=== PATIENT | male | born 1945 | race Caucasian/White ===

== ENCOUNTER 2021-11-24 09:01 | Observation (INO) | payer OTHER ==
[2021-11-24] MEDS ORDERED: Sodium Chloride 0.9% 10 ML Syringe FLUSH PRN (09:21)
[2021-11-24 10:20] LABS: PTT,PARTIAL THROMBOPLSTIN TIME 25.6 SEC (22.0-34.0)
[2021-11-24 10:24] LABS: ANION GAP 11.9 mEq/L (7-13)
[2021-11-24] MEDS ORDERED: Apixaban 5 MG Tab PO ONE ×2 (11:06→13:15)
[2021-11-24] MEDS ORDERED: diphenhydrAMINE 50 MG/ML SDV IVPUSH ONE (11:09)
[2021-11-24] MEDS ORDERED: VANCOmycin 1.5 GM/300 ML 1.5 GM in Premix Bag 1 BAG IV ONE (11:45)
[2021-11-24 11:53] LABS: CORONAVIRUS COVID-19 NAA NEGATIVE (NEGATIVE); RESPIRATORY SYNCYTIAL VIR NAA NEGATIVE (NEGATIVE)
[2021-11-24] MEDS ORDERED: Bisacodyl 5 MG Tab PO PRN (13:25)
[2021-11-24] MEDS ORDERED: Ondansetron 4 MG/2 ML SDV IVPUSH PRN (13:25)
[2021-11-24] MEDS ORDERED: Acetaminophen 325 MG Tab PO PRN (13:25)
[2021-11-24] MEDS ORDERED: Polyethylene Glycol 3350 Powder 17 GM Packet PO PRN (13:25)
[2021-11-24] MEDS ORDERED: Docusate Sodium 100 MG Cap PO PRN (13:25)
[2021-11-24 13:47] LABS: HEMOGLOBIN A1C 8.1 % (<5.7)
[2021-11-24] MEDS: Enoxaparin 40 MG/0.4 ML Syringe SUBCUT SCH (16:10)
[2021-11-25 07:15] LABS: ANION GAP 13.1 mEq/L (7-13)
[2021-11-25] MEDS ORDERED: Furosemide 20 MG Tab PO SCH (09:00)
[2021-11-25] MEDS: Furosemide 20 MG Tab PO SCH (09:33)
[2021-11-25] MEDS: glipiZIDE 5 MG Tab.ER PO SCH (09:33)
[2021-11-25] MEDS: Enoxaparin 40 MG/0.4 ML Syringe SUBCUT SCH (09:34)
[2021-11-25] MEDS: Carboxymethylcellulose Sodium 1% Ophth Gel 0.4 ML UD EYEBOTH SCH ×2 (12:24→20:31)
[2021-11-25] MEDS ORDERED: Carboxymethylcellulose Sodium 1% Ophth Gel 0.4 ML UD EYEBOTH SCH (21:00)
[2021-11-26 08:14] VITALS: BP 137/74; PULSE 63
[2021-11-26] MEDS: Furosemide 20 MG Tab PO SCH (08:40)
[2021-11-26] MEDS: glipiZIDE 5 MG Tab.ER PO SCH (08:40)
[2021-11-26] MEDS: Enoxaparin 40 MG/0.4 ML Syringe SUBCUT SCH (08:41)
[2021-11-26] MEDS: Carboxymethylcellulose Sodium 1% Ophth Gel 0.4 ML UD EYEBOTH SCH (08:41)
[2021-11-26 10:45] LABS: ANION GAP 11.2 mEq/L (7-13)
== END 2021-11-26 11:12 | disposition home or self-care (01) ==
LOC: DL.ED 09:01 → DL.MS 12:41
PROVIDERS: ADMIT Internal Medicine; ATTEND Internal Medicine
DX: L03.116 Cellulitis of left lower limb (principal); J44.9 Chronic obstructive pulmonary disease, unspecified; K44.9 Diaphragmatic hernia without obstruction or gangrene; M19.90 Unspecified osteoarthritis, unspecified site; F17.200 Nicotine dependence, unspecified, uncomplicated; N18.30 Chronic kidney disease, stage 3 unspecified; Z20.822 Contact with and (suspected) exposure to COVID-19; Z98.890 Other specified postprocedural states; Z79.899 Other long term (current) drug therapy; Z79.1 Long term (current) use of non-steroidal anti-inflammatories (NSAID); Z79.84 Long term (current) use of oral hypoglycemic drugs
CPT/HCPCS: 0241U; 36415; 80048; 80053; 80202; 83036; 83605; 83880; 85025; 85610; 85730; 86140; 87040; 93971; 96365; 96366; 96375; 99284; A9270; G0378; J1200; J1650; J3370; J7050; 99217; 99219; 99225

== ENCOUNTER 2021-12-24 13:33 | Emergency (ER) | payer OTHER ==
[2021-12-24 14:24] VITALS: BP 151/102; PULSE 73
[2021-12-24 16:50] LABS: ANION GAP 14.9 mEq/L (7-13)
== END 2021-12-24 17:25 | disposition home or self-care (01) ==
LOC: DL.ED 13:33
DX: R60.0 Localized edema (principal); J44.9 Chronic obstructive pulmonary disease, unspecified; E11.9 Type 2 diabetes mellitus without complications; Z86.73 Personal history of transient ischemic attack (TIA), and cerebral infarction without residual deficits
CPT/HCPCS: 36415; 80053; 85025; 85379; 86140; 93005; 99283

== ENCOUNTER 2022-12-09 07:13 | Inpatient (IN) | payer MEDICARE, OTHER ==
[2022-12-09] MEDS ORDERED: Acetaminophen 325 MG Tab PO ONE (07:30)
[2022-12-09 07:34] LABS: HEMATOCRIT 44.1 % (40.0-54.0); HEMOGLOBIN 15.2 g/dL (14.0-18.0); MEAN CORPUSCULAR HGB CONC 34.5 g/dL (33.0-35.0); MEAN CORPUSCULAR VOLUME 95.9 fL (80-100); PLATELET COUNT,PLT 112 10^3/uL (150-450); WHITE BLOOD CELL COUNT,WBC 15.6 10^3/uL (5.0-10.0)
[2022-12-09 07:36] LABS: BASOPHILS PERCENT AUTO 0.1 % (0.0-1.0); LYMPHOCYTES PERCENT AUTO 5.6 % (20.5-50.1); NEUTROPHILS PERCENT AUTO 81.3 % (42.2-75.2)
[2022-12-09 07:58] LABS: A/G RATIO 0.73; ANION GAP 16.1 mEq/L (7-13); BILIRUBIN TOTAL 1.5 mg/dL (0.2-1.0); BUN/CREATININE RATIO 9.5 (No establ ref range); CALCIUM 9.1 mg/dL (8.5-10.1); CREATININE 2.84 mg/dL (0.70-1.30); EST CRCL DRUG DOSING (CG) 21.41 mL/min; POTASSIUM,K 4.1 mmol/L (3.5-5.1); PROTEIN TOTAL,TP 7.1 g/dL (6.4-8.2)
[2022-12-09 08:02] LABS: LACTIC ACID 2.6 mmol/L (0.4-2.0)
[2022-12-09] MEDS ORDERED: SODIUM CHLORIDE 0.9% IV STA (08:05)
[2022-12-09] MEDS: Sodium Chloride 0.9% 10 ML Syringe FLUSH PRN (08:06)
[2022-12-09 08:07] LABS: BAND PERCENT MAN 12 %; LYMPHOCYTES PERCENT MAN 7 % (20-50); MONOCYTES PERCENT MAN 9 % (2-8); SEG NEUTROPHILS PERCENT MAN 72 % (42-75)
[2022-12-09] MEDS ORDERED: cefTRIAXone 1 GM Vial IVPUSH ONE (08:14)
[2022-12-09] MEDS ORDERED: Sodium Chloride 0.9% 10 ML Syringe FLUSH PRN (08:45)
[2022-12-09 09:11] LABS: APPEARANCE,URINE CLEAR (CLEAR); BILIRUBIN,URINE NEGATIVE (NEGATIVE); COLOR,URINE YELLOW (YELLOW); GLUCOSE,URINE 500 (NEGATIVE); KETONES,URINE 15 (NEGATIVE); LEUKOCYTE ESTERASE,URINE NEGATIVE (NEGATIVE); NITRITE,URINE NEGATIVE (NEGATIVE); OCCULT BLOOD,URINE MODERATE (NEGATIVE); PH,URINE 5.5 (5.0-9.0); PROTEIN,URINE 100 (NEGATIVE); UROBILINOGEN,URINE 0.2 mg/dL (0.2-1.0)
[2022-12-09 09:21] LABS: BACTERIA,URINE RARE /HPF (0-FEW/HPF); EPITHELIAL CELLS,URINE RARE /HPF (NOT SEEN); RBC,URINE 0-5 /HPF (0-5); WBC,URINE 0-5 /HPF (0-5/HPF)
[2022-12-09 09:22] LABS: MUCUS,URINE NOT SEEN /LPF (NOT SEEN)
[2022-12-09] MEDS ORDERED: Ondansetron 4 MG/2 ML SDV IVPUSH PRN (11:48)
[2022-12-09] MEDS ORDERED: Sennosides/Docusate Sodium 50-8.6 MG Tab PO PRN (11:48)
[2022-12-09] MEDS ORDERED: HYDROmorphone 0.5 MG/0.5 ML Syringe IVPUSH PRN (11:48)
[2022-12-09] MEDS ORDERED: Acetaminophen 325 MG Tab PO PRN (11:48)
[2022-12-09] MEDS ORDERED: Magnesium Hydroxide 400 MG/5 ML Susp 30 ML Cup PO PRN (11:48)
[2022-12-09] MEDS ORDERED: Polyethylene Glycol 3350 Powder 17 GM Packet PO PRN (11:48)
[2022-12-09] MEDS ORDERED: hydrALAZINE 20 MG/ML SDV IVPUSH PRN (11:52)
[2022-12-09] MEDS ORDERED: 50% Dextrose in Water 50 ML Syringe IVPUSH PRN (11:52)
[2022-12-09] MEDS ORDERED: Glucagon,Human Recombinant 1 MG Vial IM PRN (11:52)
[2022-12-09] MEDS ORDERED: Metoprolol Tartrate 5 MG/5 ML SDV IVPUSH PRN (11:52)
[2022-12-09] MEDS ORDERED: cloNIDine 0.1 MG Tab PO PRN (11:56)
[2022-12-09] MEDS ORDERED: LORazepam 2 MG/ML SDV IV PRN (11:56)
[2022-12-09] MEDS ORDERED: LORazepam 0.5 MG Tab PO PRN (11:56)
[2022-12-09 12:17] LABS: T4 FREE 1.48 ng/dL (0.76-1.46); TSH ULTRASENSITIVE 1.22 uIU/mL (0.36-3.74)
[2022-12-09] MEDS ORDERED: MVI, Adult with Vitamin K 10 ML, Folic Acid 1 MG, Thiamine 100 MG in Lactated Ringers 1... IV ONE ×4 (12:30)
[2022-12-09] MEDS: Piperacillin/Tazobactam 3.375 GM in Sodium Chloride 0.9% 100 ML IV SCH ×2 (12:46→12:59)
[2022-12-09] MEDS: Acetaminophen/Butalbital/Caffeine 325-50-40 MG Tab PO PRN (12:47)
[2022-12-09] MEDS: Insulin Lispro 100 Units/ML 3 ML Vial SUBCUT SCH ×2 (12:53→17:58)
[2022-12-09] MEDS: Piperacillin/Tazobactam 2.25 GM in Sodium Chloride 0.9% 50 ML IV SCH ×3 (13:02→23:42)
[2022-12-09] MEDS: Acetaminophen 325 MG Tab PO PRN (17:23)
[2022-12-09] MEDS: Albuterol/Ipratropium 3.0-0.5 MG/3 ML Neb Soln NEB PRN (17:36)
[2022-12-09] MEDS: Loratadine 10 MG Tab PO SCH (21:00)
[2022-12-09] MEDS: Saccharomyces Boulardii (Probiotic) 250 MG Cap PO SCH (21:00)
[2022-12-10] MEDS: Acetaminophen/Butalbital/Caffeine 325-50-40 MG Tab PO PRN (04:56)
[2022-12-10] MEDS: Pantoprazole 40 MG Tab.CR PO SCH ×2 (04:58→06:00)
[2022-12-10] MEDS: Piperacillin/Tazobactam 2.25 GM in Sodium Chloride 0.9% 50 ML IV SCH ×3 (04:58→18:07)
[2022-12-10 06:09] LABS: BASOPHILS PERCENT AUTO 0.1 % (0.0-1.0); HEMATOCRIT 39.1 % (40.0-54.0); HEMOGLOBIN 13.3 g/dL (14.0-18.0); LYMPHOCYTES PERCENT AUTO 6.3 % (20.5-50.1); MEAN CORPUSCULAR HEMOGLOBIN 32.8 pg (27.0-34.0); MEAN CORPUSCULAR VOLUME 96.3 fL (80-100); MONOCYTES PERCENT AUTO 12.8 % (2-8); NEUTROPHILS PERCENT AUTO 80.8 % (42.2-75.2); PLATELET COUNT,PLT 75 10^3/uL (150-450); RED BLOOD CELL COUNT 4.06 10^6/uL (4.6-6.2); WHITE BLOOD CELL COUNT,WBC 8.3 10^3/uL (5.0-10.0)
[2022-12-10 06:44] LABS: ALBUMIN 2.2 g/dL (3.4-5.0); ANION GAP 16.6 mEq/L (7-13); BILIRUBIN TOTAL 1.1 mg/dL (0.2-1.0); CREATININE 3.09 mg/dL (0.70-1.30); EST CRCL DRUG DOSING (CG) 19.68 mL/min; MAGNESIUM 1.8 mg/dL (1.8-2.4); POTASSIUM,K 3.6 mmol/L (3.5-5.1)
[2022-12-10 06:53] LABS: A/G RATIO 0.58; C-REACTIVE PROTEIN 35.5 mg/dL (0.0-0.9)
[2022-12-10] MEDS: Insulin Lispro 100 Units/ML 3 ML Vial SUBCUT SCH ×3 (08:16→17:13)
[2022-12-10] MEDS: Saccharomyces Boulardii (Probiotic) 250 MG Cap PO SCH ×2 (08:39→21:39)
[2022-12-10] MEDS: Thiamine 100 MG Tab PO SCH (08:39)
[2022-12-10] MEDS: Folic Acid 1 MG Tab PO SCH (08:39)
[2022-12-10] MEDS: Multivitamin Tab PO SCH (08:39)
[2022-12-10] MEDS: Loratadine 10 MG Tab PO SCH ×2 (08:39→21:40)
[2022-12-10] MEDS ORDERED: Sodium Chloride 0.9% 1,500 ML IV SCH (09:45)
[2022-12-10] MEDS: Acetaminophen 325 MG Tab PO PRN (12:21)
[2022-12-10] MEDS: Acetaminophen/oxyCODONE 325-5 MG Tab PO PRN ×2 (12:23→19:11)
[2022-12-10 17:13] LABS: APPEARANCE,URINE CLOUDY (CLEAR); BILIRUBIN,URINE NEGATIVE (NEGATIVE); COLOR,URINE YELLOW (YELLOW); GLUCOSE,URINE 500 (NEGATIVE); KETONES,URINE NEGATIVE (NEGATIVE); LEUKOCYTE ESTERASE,URINE SMALL (NEGATIVE); NITRITE,URINE NEGATIVE (NEGATIVE); OCCULT BLOOD,URINE LARGE (NEGATIVE); PROTEIN,URINE >=300 (NEGATIVE)
[2022-12-10 17:45] LABS: EPITHELIAL CELLS,URINE FEW /HPF (NOT SEEN); WBC,URINE >100 /HPF (0-5/HPF)
[2022-12-10 17:46] LABS: AMORPHOUS SEDIMENT,URINE FEW /HPF (NOT SEEN)
[2022-12-10 17:47] LABS: BACTERIA,URINE MODERATE /HPF (0-FEW/HPF); RBC,URINE 50-75 /HPF (0-5)
[2022-12-10] MEDS ORDERED: Meropenem 1 GM SDV IVPUSH SCH ×3 (18:30→22:00)
[2022-12-10 19:13] LABS: ANION GAP 14.9 mEq/L (7-13); CREATININE 3.07 mg/dL (0.70-1.30); EST CRCL DRUG DOSING (CG) 19.8 mL/min; MAGNESIUM 1.8 mg/dL (1.8-2.4); POTASSIUM,K 3.9 mmol/L (3.5-5.1)
[2022-12-10] MEDS: Sodium Chloride 0.9% 10 ML Syringe FLUSH PRN (21:41)
[2022-12-10] MEDS ORDERED: MVI, Adult with Vitamin K 10 ML, Folic Acid 1 MG, Thiamine 100 MG in Lactated Ringers 1... IV ONE ×4 (23:46)
[2022-12-11] MEDS: Piperacillin/Tazobactam 2.25 GM in Sodium Chloride 0.9% 50 ML IV SCH ×4 (02:16→17:53)
[2022-12-11] MEDS ORDERED: MVI, Adult with Vitamin K 10 ML, Folic Acid 1 MG, Thiamine 100 MG in Lactated Ringers 1... IV ONE ×4 (05:00)
[2022-12-11] MEDS: Acetaminophen 325 MG Tab PO PRN (05:59)
[2022-12-11] MEDS: Pantoprazole 40 MG Tab.CR PO SCH (06:00)
[2022-12-11 06:05] LABS: BASOPHILS PERCENT AUTO 0.2 % (0.0-1.0); EOSINOPHILS PERCENT AUTO 0.3 % (1.0-3.0); HEMATOCRIT 40.3 % (40.0-54.0); HEMOGLOBIN 13.7 g/dL (14.0-18.0); LYMPHOCYTES PERCENT AUTO 10.7 % (20.5-50.1); MEAN CORPUSCULAR HEMOGLOBIN 32.5 pg (27.0-34.0); MEAN CORPUSCULAR VOLUME 95.7 fL (80-100); NEUTROPHILS PERCENT AUTO 74.8 % (42.2-75.2); PLATELET COUNT,PLT 76 10^3/uL (150-450); RED BLOOD CELL COUNT 4.21 10^6/uL (4.6-6.2); WHITE BLOOD CELL COUNT,WBC 6.4 10^3/uL (5.0-10.0)
[2022-12-11 06:20] LABS: ALBUMIN 2.2 g/dL (3.4-5.0); BILIRUBIN TOTAL 1.2 mg/dL (0.2-1.0); BUN/CREATININE RATIO 10.7 (No establ ref range); CREATININE 3.08 mg/dL (0.70-1.30); EST CRCL DRUG DOSING (CG) 19.74 mL/min; PROTEIN TOTAL,TP 6.3 g/dL (6.4-8.2)
[2022-12-11 06:27] LABS: A/G RATIO 0.54
[2022-12-11 06:28] LABS: C-REACTIVE PROTEIN 33.2 mg/dL (0.0-0.9)
[2022-12-11] MEDS: Insulin Lispro 100 Units/ML 3 ML Vial SUBCUT SCH ×3 (08:51→17:14)
[2022-12-11] MEDS: Meropenem 1 GM SDV IVPUSH SCH ×2 (08:51→22:07)
[2022-12-11] MEDS: Multivitamin Tab PO SCH (08:51)
[2022-12-11] MEDS: Saccharomyces Boulardii (Probiotic) 250 MG Cap PO SCH ×2 (08:51→20:55)
[2022-12-11] MEDS: Loratadine 10 MG Tab PO SCH ×2 (08:51→20:55)
[2022-12-11] MEDS: Thiamine 100 MG Tab PO SCH (08:51)
[2022-12-11] MEDS: Folic Acid 1 MG Tab PO SCH (08:51)
[2022-12-11] MEDS: Acetaminophen/oxyCODONE 325-5 MG Tab PO PRN ×2 (11:55→21:18)
[2022-12-11] MEDS: Acetaminophen/Butalbital/Caffeine 325-50-40 MG Tab PO PRN (16:07)
[2022-12-11] MEDS: Sodium Chloride 0.9% 10 ML Syringe FLUSH PRN ×2 (22:06→23:59)
[2022-12-12] MEDS: Pantoprazole 40 MG Tab.CR PO SCH ×2 (04:56→05:18)
[2022-12-12] MEDS: Albuterol/Ipratropium 3.0-0.5 MG/3 ML Neb Soln NEB PRN ×2 (05:21→21:08)
[2022-12-12 06:50] LABS: BASOPHILS PERCENT AUTO 0.3 % (0.0-1.0); EOSINOPHILS PERCENT AUTO 0.6 % (1.0-3.0); HEMATOCRIT 40.2 % (40.0-54.0); HEMOGLOBIN 13.7 g/dL (14.0-18.0); LYMPHOCYTES PERCENT AUTO 12.6 % (20.5-50.1); MEAN CORPUSCULAR HEMOGLOBIN 32.6 pg (27.0-34.0); MEAN CORPUSCULAR HGB CONC 34.1 g/dL (33.0-35.0); MEAN CORPUSCULAR VOLUME 95.7 fL (80-100); MONOCYTES PERCENT AUTO 16.6 % (2-8); NEUTROPHILS PERCENT AUTO 69.9 % (42.2-75.2); PLATELET COUNT,PLT 82 10^3/uL (150-450); WHITE BLOOD CELL COUNT,WBC 7.8 10^3/uL (5.0-10.0)
[2022-12-12 07:09] LABS: ALBUMIN 2.1 g/dL (3.4-5.0); ANION GAP 13.8 mEq/L (7-13); BILIRUBIN TOTAL 1.5 mg/dL (0.2-1.0); BUN/CREATININE RATIO 12.4 (No establ ref range); CALCIUM 8.4 mg/dL (8.5-10.1); CREATININE 2.74 mg/dL (0.70-1.30); EST CRCL DRUG DOSING (CG) 22.19 mL/min; MAGNESIUM 2.2 mg/dL (1.8-2.4); POTASSIUM,K 3.8 mmol/L (3.5-5.1); PROTEIN TOTAL,TP 6.6 g/dL (6.4-8.2)
[2022-12-12 07:12] LABS: HEMOGLOBIN A1C 8.6 % (<5.7)
[2022-12-12 07:37] LABS: A/G RATIO 0.47; C-REACTIVE PROTEIN 28.4 mg/dL (0.0-0.9)
[2022-12-12] MEDS: Piperacillin/Tazobactam 2.25 GM in Sodium Chloride 0.9% 50 ML IV SCH ×5 (07:46→18:39)
[2022-12-12] MEDS: Insulin Lispro 100 Units/ML 3 ML Vial SUBCUT SCH ×3 (07:50→18:24)
[2022-12-12] MEDS: Meropenem 1 GM SDV IVPUSH SCH (08:36)
[2022-12-12] MEDS: Cholecalciferol (Vitamin D3) 25 MCG Tab PO SCH (08:37)
[2022-12-12] MEDS: Thiamine 100 MG Tab PO SCH (08:37)
[2022-12-12] MEDS: Saccharomyces Boulardii (Probiotic) 250 MG Cap PO SCH ×2 (08:37→21:08)
[2022-12-12] MEDS: Loratadine 10 MG Tab PO SCH ×2 (08:38→21:08)
[2022-12-12] MEDS: Multivitamin Tab PO SCH (08:38)
[2022-12-12] MEDS: Folic Acid 1 MG Tab PO SCH (08:38)
[2022-12-12] MEDS ORDERED: Furosemide 20 MG/2 ML VIAL IVPUSH ONE (08:58)
[2022-12-12] MEDS ORDERED: Empagliflozin 25 MG Tab PO SCH (09:00)
[2022-12-12] MEDS: Acetaminophen/Butalbital/Caffeine 325-50-40 MG Tab PO PRN (13:37)
[2022-12-12] MEDS ORDERED: Nitroglycerin 0.4 MG Tab.SL SL PRN (17:40)
[2022-12-12] MEDS ORDERED: Pantoprazole 40 MG Vial IVPUSH STA (17:41)
[2022-12-13] MEDS: Piperacillin/Tazobactam 2.25 GM in Sodium Chloride 0.9% 50 ML IV SCH ×6 (05:14→23:49)
[2022-12-13] MEDS: Pantoprazole 40 MG Tab.CR PO SCH (05:14)
[2022-12-13 06:05] LABS: HEMATOCRIT 38.7 % (40.0-54.0); HEMOGLOBIN 13.5 g/dL (14.0-18.0); MEAN CORPUSCULAR HEMOGLOBIN 32.7 pg (27.0-34.0); MEAN CORPUSCULAR HGB CONC 34.9 g/dL (33.0-35.0); MEAN CORPUSCULAR VOLUME 93.7 fL (80-100); PLATELET COUNT,PLT 97 10^3/uL (150-450); RED BLOOD CELL COUNT 4.13 10^6/uL (4.6-6.2); WHITE BLOOD CELL COUNT,WBC 7.8 10^3/uL (5.0-10.0)
[2022-12-13 06:15] LABS: LYMPHOCYTES PERCENT AUTO 15.4 % (20.5-50.1); NEUTROPHILS PERCENT AUTO 64.7 % (42.2-75.2)
[2022-12-13 06:16] LABS: BASOPHILS PERCENT AUTO 0.3 % (0.0-1.0); EOSINOPHILS PERCENT AUTO 1.3 % (1.0-3.0); MONOCYTES PERCENT AUTO 18.3 % (2-8)
[2022-12-13 06:18] LABS: ANION GAP 11.3 mEq/L (7-13); BILIRUBIN TOTAL 1.5 mg/dL (0.2-1.0); BUN/CREATININE RATIO 11.3 (No establ ref range); CALCIUM 8.2 mg/dL (8.5-10.1); CREATININE 2.66 mg/dL (0.70-1.30); EST CRCL DRUG DOSING (CG) 22.86 mL/min; POTASSIUM,K 3.3 mmol/L (3.5-5.1); PROTEIN TOTAL,TP 6.1 g/dL (6.4-8.2)
[2022-12-13 06:29] LABS: EOSINOPHILS PERCENT MAN 1 % (1-3); LYMPHOCYTES PERCENT MAN 14 % (20-50); MONOCYTES PERCENT MAN 14 % (2-8); SEG NEUTROPHILS PERCENT MAN 71 % (42-75)
[2022-12-13 06:38] LABS: A/G RATIO 0.49; C-REACTIVE PROTEIN 18.9 mg/dL (0.0-0.9)
[2022-12-13] MEDS: Thiamine 100 MG Tab PO SCH (08:39)
[2022-12-13] MEDS: Loratadine 10 MG Tab PO SCH ×2 (08:40→20:31)
[2022-12-13] MEDS: Saccharomyces Boulardii (Probiotic) 250 MG Cap PO SCH ×2 (08:40→20:31)
[2022-12-13] MEDS: Empagliflozin 25 MG Tab PO SCH (08:40)
[2022-12-13] MEDS: Cholecalciferol (Vitamin D3) 25 MCG Tab PO SCH (08:40)
[2022-12-13] MEDS: Insulin Lispro 100 Units/ML 3 ML Vial SUBCUT SCH ×3 (08:41→17:17)
[2022-12-13] MEDS: Multivitamin Tab PO SCH (08:41)
[2022-12-13] MEDS ORDERED: Potassium Chloride 10 MEQ Tab.ER PO ONE (12:00)
[2022-12-13] MEDS: Furosemide 20 MG Tab PO SCH (16:22)
[2022-12-13] MEDS: Acetaminophen/oxyCODONE 325-5 MG Tab PO PRN (23:58)
[2022-12-14] MEDS: Pantoprazole 40 MG Tab.CR PO SCH (06:48)
[2022-12-14] MEDS: Piperacillin/Tazobactam 2.25 GM in Sodium Chloride 0.9% 50 ML IV SCH ×4 (06:48→23:49)
[2022-12-14] MEDS: Furosemide 20 MG Tab PO SCH (08:09)
[2022-12-14] MEDS: Loratadine 10 MG Tab PO SCH ×2 (08:09→20:32)
[2022-12-14] MEDS: Saccharomyces Boulardii (Probiotic) 250 MG Cap PO SCH ×2 (08:09→20:32)
[2022-12-14] MEDS: Cholecalciferol (Vitamin D3) 25 MCG Tab PO SCH (08:09)
[2022-12-14] MEDS: Multivitamin Tab PO SCH (08:09)
[2022-12-14] MEDS: Empagliflozin 25 MG Tab PO SCH (08:09)
[2022-12-14] MEDS: Thiamine 100 MG Tab PO SCH (08:09)
[2022-12-14] MEDS: Insulin Lispro 100 Units/ML 3 ML Vial SUBCUT SCH ×3 (08:10→17:42)
[2022-12-14] MEDS ORDERED: Pantoprazole 40 MG Vial IVPUSH STA (11:10)
[2022-12-14] MEDS: Sodium Chloride 0.9% 10 ML Syringe FLUSH PRN (23:49)
[2022-12-15] MEDS: Pantoprazole 40 MG Tab.CR PO SCH ×2 (04:41→05:34)
[2022-12-15] MEDS: Sodium Chloride 0.9% 10 ML Syringe FLUSH PRN (05:34)
[2022-12-15] MEDS: Piperacillin/Tazobactam 2.25 GM in Sodium Chloride 0.9% 50 ML IV SCH (05:35)
[2022-12-15 06:19] LABS: BASOPHILS PERCENT AUTO 0.3 % (0.0-1.0); EOSINOPHILS PERCENT AUTO 3.1 % (1.0-3.0); HEMATOCRIT 39.6 % (40.0-54.0); HEMOGLOBIN 13.4 g/dL (14.0-18.0); MEAN CORPUSCULAR HEMOGLOBIN 32.2 pg (27.0-34.0); MEAN CORPUSCULAR HGB CONC 33.8 g/dL (33.0-35.0); MEAN CORPUSCULAR VOLUME 95.2 fL (80-100); MONOCYTES PERCENT AUTO 12.3 % (2-8); NEUTROPHILS PERCENT AUTO 66.3 % (42.2-75.2); PLATELET COUNT,PLT 164 10^3/uL (150-450); RED BLOOD CELL COUNT 4.16 10^6/uL (4.6-6.2); WHITE BLOOD CELL COUNT,WBC 9.2 10^3/uL (5.0-10.0)
[2022-12-15 06:42] LABS: ANION GAP 12.2 mEq/L (7-13); BILIRUBIN TOTAL 1.1 mg/dL (0.2-1.0); BUN/CREATININE RATIO 10.1 (No establ ref range); CALCIUM 8.6 mg/dL (8.5-10.1); CREATININE 2.37 mg/dL (0.70-1.30); EST CRCL DRUG DOSING (CG) 25.25 mL/min; MAGNESIUM 2.1 mg/dL (1.8-2.4); POTASSIUM,K 4.2 mmol/L (3.5-5.1); PROTEIN TOTAL,TP 6.4 g/dL (6.4-8.2)
[2022-12-15 06:51] LABS: A/G RATIO 0.45
[2022-12-15 08:52] VITALS: BP 135/79; PULSE 58
[2022-12-15] MEDS: Insulin Lispro 100 Units/ML 3 ML Vial SUBCUT SCH (08:54)
[2022-12-15] MEDS: Multivitamin Tab PO SCH (09:09)
[2022-12-15] MEDS: Thiamine 100 MG Tab PO SCH (09:09)
[2022-12-15] MEDS: Cholecalciferol (Vitamin D3) 25 MCG Tab PO SCH (09:09)
[2022-12-15] MEDS: Loratadine 10 MG Tab PO SCH (09:09)
[2022-12-15] MEDS: Empagliflozin 25 MG Tab PO SCH (09:10)
[2022-12-15] MEDS: Furosemide 20 MG Tab PO SCH (09:10)
[2022-12-15] MEDS: Saccharomyces Boulardii (Probiotic) 250 MG Cap PO SCH (09:10)
== END 2022-12-15 11:14 | disposition home or self-care (01) | DRG 871 ==
LOC: DL.ED 07:13 → DL.MS 10:55 → UNDOADMIN 11:13
PROVIDERS: ADMIT Internal Medicine; ATTEND Internal Medicine
PROC: 5A09357 Assistance with Respiratory Ventilation, Less than 24 Consecutive Hours, Continuous Positive Airway Pressure (ICD-10-PCS; principal; 2022-12-09)
PROC: 3E03329 Introduction of Other Anti-infective into Peripheral Vein, Percutaneous Approach (ICD-10-PCS; 2022-12-10)
DX: A41.89 Other specified sepsis (principal); G93.41 Metabolic encephalopathy; E87.1 Hypo-osmolality and hyponatremia; N18.4 Chronic kidney disease, stage 4 (severe); E87.20 Acidosis, unspecified; N39.0 Urinary tract infection, site not specified; Z68.41 Body mass index [BMI] 40.0-44.9, adult; F10.239 Alcohol dependence with withdrawal, unspecified; E11.22 Type 2 diabetes mellitus with diabetic chronic kidney disease; I12.9 Hypertensive chronic kidney disease with stage 1 through stage 4 chronic kidney disease, or unspecified chronic kidney disease; G47.33 Obstructive sleep apnea (adult) (pediatric); M10.9 Gout, unspecified; L98.9 Disorder of the skin and subcutaneous tissue, unspecified; E78.5 Hyperlipidemia, unspecified; D69.6 Thrombocytopenia, unspecified; E11.65 Type 2 diabetes mellitus with hyperglycemia; E80.6 Other disorders of bilirubin metabolism; E88.09 Other disorders of plasma-protein metabolism, not elsewhere classified; A41.9 Sepsis, unspecified organism; E86.0 Dehydration; E66.9 Obesity, unspecified; R32 Unspecified urinary incontinence; J32.9 Chronic sinusitis, unspecified; J33.9 Nasal polyp, unspecified; E87.6 Hypokalemia; Z87.891 Personal history of nicotine dependence; Z89.429 Acquired absence of other toe(s), unspecified side; Z85.828 Personal history of other malignant neoplasm of skin; Z85.46 Personal history of malignant neoplasm of prostate; Z86.010 Personal history of colon polyps; Z20.822 Contact with and (suspected) exposure to COVID-19; E11.9 Type 2 diabetes mellitus without complications; Z98.890 Other specified postprocedural states; Z90.79 Acquired absence of other genital organ(s); J44.9 Chronic obstructive pulmonary disease, unspecified; Z98.49 Cataract extraction status, unspecified eye; Z79.84 Long term (current) use of oral hypoglycemic drugs; Z79.899 Other long term (current) drug therapy; Z86.73 Personal history of transient ischemic attack (TIA), and cerebral infarction without residual deficits
CPT/HCPCS: 36415; 70551; 71045; 80048; 80053; 80202; 81001; 82306; 82947; 83036; 83605; 83735; 84145; 84439; 84443; 84484; 84550; 85025; 86140; 87040; 87077; 87086; 87088; 87186; 87804; 93005; 93010; 94640; 96365; 96366; 96375; 97161-GP; 97165-GO; 97530-GO; 97530-GP; 97535-GO; 99285; 99285-25; A9270-GY; C1758; C9113; J0696; J1815-GY; J1940; J2060; J2185; J2405; J2543; J3370; J3411; J3490; J7030; J7050; J7120; J7620-GY; U0002